=== PATIENT | male | born 1990 | race Caucasian/White ===

== ENCOUNTER 2022-01-10 13:31 | Emergency (ER) | payer BC, OTHER ==
[2022-01-10 14:06] VITALS: RESP 18; TEMP 99.5
[2022-01-10] MEDS ORDERED: SODIUM CHLORIDE 0.9% 2,000 ML IV STA (14:31)
[2022-01-10] MEDS ORDERED: ONDANSETRON 4 MG/2 ML VIAL IVP STA (14:31)
[2022-01-10] MEDS ORDERED: METOCLOPRAMIDE 5 MG/ML 2 ML VIAL IVP STA (14:49)
[2022-01-10] MEDS ORDERED: KETOROLAC 15 MG/ML 1 ML VIAL IVP STA (14:49)
[2022-01-10] MEDS ORDERED: FAMOTIDINE 20 MG/2 ML VIAL IV STA (14:49)
[2022-01-10] MEDS ORDERED: diphenhydrAMINE 50 MG/ML 1 ML VIAL IVP STA (14:49)
--- NOTE | 2022-01-10 14:54 | ED ---
Abdominal Pain HPI - General Chief Complaint: Abdominal Pain Stated Complaint: abd pain Time Seen by Provider: 01/10/22 14:30 Source: patient, family, RN notes reviewed Mode of arrival: ambulatory Limitations: no limitations - History of Present Illness Initial Comments: This a 31-year-old male presents emergency Department with chief complaint of abdominal discomfort, nausea vomiting diarrhea. Patient states symptoms started around 2 AM. Patient had persistent vomiting and diarrhea he states it is bilious at this time. He does admit that he has some periumbilical epigastric discomfort. Patient states that low-grade temp he is currently on antibiotics. He states he was told he had an infection of his foot he states that is greatly improved. He has not taken his antibiotics today because of the nausea vomiting. Patient's had no prior abdominal surgeries. Denies any chest pain shortness breath any cough or cold like symptoms otherwise. - Related Data Previous Rx's Medication Instructions Recorded Clindamycin [Cleocin] 450 mg PO TID #63 cap 01/31/18 Ibuprofen 600 mg PO Q6HR #20 tablet 01/31/18 Ondansetron Odt [Zofran Odt] 4 mg PO Q8HR PRN #10 tab 01/10/22 Allergies Allergy/AdvReac Type Severity Reaction Status Date / Time amoxicillin Allergy Unknown Verified 01/31/18 14:03 Childhood cefaclor [From Ceclor] Allergy Unknown Verified 01/31/18 14:03 Childhood Penicillins Allergy Unknown Verified 01/31/18 14:03 Childhood sulfamethoxazole Allergy Unknown Verified 01/31/18 14:03 [From Bactrim] Childhood trimethoprim [From Bactrim] Allergy Unknown Verified 01/31/18 14:03 Childhood Review of Systems ROS Statement: Those systems with pertinent positive or pertinent negative responses have been documented in the HPI. ROS Other: All systems not noted in ROS Statement are negative. Past Medical History Past Medical History: Asthma History of Any Multi-Drug Resistant Organisms: None Reported Past Surgical History: No Surgical Hx Reported Past Psychological History: Anxiety Smoking Status: Current every day smoker Past Alcohol Use History: None Reported Past Drug Use History: None Reported General Exam Limitations: no limitations General appearance: alert, in no apparent distress Head exam: Present: atraumatic, normocephalic, normal inspection Eye exam: Present: normal appearance, PERRL, EOMI. Absent: scleral icterus, co njunctival injection, periorbital swelling ENT exam: Present: normal exam, mucous membranes moist Neck exam: Present: normal inspection, full ROM. Absent: tenderness, meningismus, lymphadenopathy Respiratory exam: Present: normal lung sounds bilaterally. Absent: respiratory distress, wheezes, rales, rhonchi, stridor Cardiovascular Exam: Present: normal rhythm, tachycardia, normal heart sounds. Absent: systolic murmur, diastolic murmur, rubs, gallop, clicks GI/Abdominal exam: Present: soft, tenderness (Epigastric discomfort), normal bowel sounds. Absent: distended, guarding, rebound, rigid Back exam: Absent: CVA tenderness (R), CVA tenderness (L) Course Vital Signs 01/10/22 14:04 Temperature 99.5 F Pulse Rate 110 H Respiratory 18 Rate Blood Pressure 134/88 O2 Sat by Pulse 96 Oximetry Medical Decision Making - Medical Decision Making 31-year-old presented for nausea vomiting diarrhea abdominal discomfort. Patient's lab reveal mild leukocytosis. It was hydrated, given antiemetics. He was reevaluated that she feels greatly improved I did reexamine his abdomen which is soft he has no tenderness after fluids and antiemetics. Patient felt comfortable with discharge is given strict return parameters for possible an early appendicitis. - Lab Data Result diagrams: 01/10/22 14:51 01/10/22 14:51 Lab Results 01/10/22 01/10/22 Range/Units 14:51 14:51 WBC 15.6 H (3.8-10.6) k/uL RBC 5.08 (4.30-5.90) m/uL Hgb 16.1 (13.0-17.5) gm/dL Hct 47.1 (39.0-53.0) % MCV 92.7 (80.0-100.0) fL MCH 31.7 (25.0-35.0) pg MCHC 34.2 (31.0-37.0) g/dL RDW 13.4 (11.5-15.5) % Plt Count 310 (150-450) k/uL MPV 8.5 Neutrophils % 93 % Lymphocytes % 4 % Monocytes % 3 % Eosinophils % 1 % Basophils % 0 % Neutrophils # 14.4 H (1.3-7.7) k/uL Lymphocytes # 0.6 L (1.0-4.8) k/uL Monocytes # 0.4 (0-1.0) k/uL Eosinophils # 0.1 (0-0.7) k/uL Basophils # 0.0 (0-0.2) k/uL Sodium 135 L (137-145) mmol/L Potassium 4.3 (3.5-5.1) mmol/L Chloride 103 (98-107) mmol/L Carbon Dioxide 22 (22-30) mmol/L Anion Gap 10 mmol/L BUN 15 (9-20) mg/dL Creatinine 0.72 (0.66-1.25) mg/dL Est GFR (CKD-EPI)AfAm >90 (>60 ml/min/1.73 sqM) Est GFR (CKD-EPI)NonAf >90 (>60 ml/min/1.73 sqM) Glucose 126 H (74-99) mg/dL Calcium 9.3 (8.4-10.2) mg/dL Total Bilirubin 1.8 H (0.2-1.3) mg/dL AST 23 (17-59) U/L ALT 16 (4-49) U/L Alkaline Phosphatase 34 L (38-126) U/L Total Protein 6.9 (6.3-8.2) g/dL Albumin 4.3 (3.5-5.0) g/dL Amylase 58 (30-110) U/L Lipase 23 (23-300) U/L Disposition Clinical Impression: Gastroenteritis Disposition: HOME SELF-CARE Condition: Stable Instructions (If sedation given, give patient instructions): Gastroenteritis (ED) Additional Instructions: Please return to the Emergency Department if symptoms worsen or any other concerns. Prescriptions: Ondansetron Odt [Zofran Odt] 4 mg PO Q8HR PRN #10 tab PRN Reason: Nausea Is patient prescribed a controlled substance at d/c from ED?: No Referrals: None,Stated [Primary Care Provider] - 1-2 days
[2022-01-10 15:14] LABS: AST 23 U/L (17-59); African American GFR (CKD) >90 (>60 ml/min/1.73 sqM); Albumin 4.3 g/dL (3.5-5.0); Amylase 58 U/L (30-110); Blood Urea Nitrogen 15 mg/dL (9-20); Calcium 9.3 mg/dL (8.4-10.2); Carbon Dioxide 22 mmol/L (22-30); Glucose 126 mg/dL (74-99); Non-African American GFR(CKD) >90 (>60 ml/min/1.73 sqM); Potassium 4.3 mmol/L (3.5-5.1); Sodium 135 mmol/L (137-145); Total Bilirubin 1.8 mg/dL (0.2-1.3); Total Protein 6.9 g/dL (6.3-8.2)
[2022-01-10 15:16] LABS: ALT 16 U/L (4-49); Alkaline Phosphatase 34 U/L (38-126); Lipase 23 U/L (23-300)
[2022-01-10 15:19] LABS: Basophils % (A) 0 %; Eosinophils # (A) 0.1 k/uL (0-0.7); Eosinophils % (A) 1 %; HCT 47.1 % (39.0-53.0); HGB 16.1 gm/dL (13.0-17.5); Lymphocytes # (A) 0.6 k/uL (1.0-4.8); Lymphocytes % (A) 4 %; MCH 31.7 pg (25.0-35.0); MCHC 34.2 g/dL (31.0-37.0); MCV 92.7 fL (80.0-100.0); Mean Platelet Volume 8.5; Monocytes # (A) 0.4 k/uL (0-1.0); Monocytes % (A) 3 %; Neutrophils # (A) 14.4 k/uL (1.3-7.7); Neutrophils % (A) 93 %; Platelet Count 310 k/uL (150-450); RBC 5.08 m/uL (4.30-5.90); RDW 13.4 % (11.5-15.5); WBC 15.6 k/uL (3.8-10.6)
[2022-01-10 15:52] LABS: Anion Gap 10 mmol/L; Chloride 103 mmol/L (98-107)
[2022-01-10 16:12] VITALS: BP 103/87; PULSE 89
== END 2022-01-10 16:12 | disposition home or self-care (01) ==
LOC: EC 13:31
DX: R10.9 Unspecified abdominal pain (principal); Z88.0 Allergy status to penicillin; Z88.1 Allergy status to other antibiotic agents; Z88.2 Allergy status to sulfonamides; F17.200 Nicotine dependence, unspecified, uncomplicated
CPT/HCPCS: 80053; 82150; 83690; 85025; 99284; 96374; 96375; 96361; J1200; J2765; J2405; J1885; 36415

== ENCOUNTER 2022-02-08 19:44 | Emergency (ER) | payer BC ==
[2022-02-08 20:36] VITALS: TEMP 97.6
--- NOTE | 2022-02-09 | XR ---
EXAMINATION TYPE: XR foot complete LT DATE OF EXAM: 02/08/2022 COMPARISON: NONE HISTORY: Foot infection TECHNIQUE: 3 views FINDINGS: Metatarsals are intact. I see no fracture nor dislocation. There are no erosions. There is some thickening of the shaft of the distal fifth metatarsal consistent with old fracture. No focal constanza ne destruction. IMPRESSION: No acute abnormality of the left foot. No sign of osteomyelitis.
[2022-02-09 00:07] VITALS: BP 128/66; PULSE 63; RESP 17
--- NOTE | 2022-02-09 00:41 | ED ---
Extremity Problem HPI - General Chief complaint: Extremity Problem,Nontraumatic Stated complaint: R foot sore Time Seen by Provider: 02/08/22 22:11 Source: patient Mode of arrival: ambulatory Limitations: no limitations - History of Present Illness Initial comments: This patient is a 31-year-old man who presents for evaluation of left foot redness and swelling. The patient states that symptoms have been going on between 1 and 2 months. He was initially seen at urgent care at the end of December and given course of doxycycline for suspected foot infection. He went back out when that course ended and was given another course of medication. He states that the symptoms do get a little better but then recur. He has not noted any systemic symptoms. No fever or chills. No chest pain, palpitations, dyspnea or other symptoms. The patient cannot recall any trauma to the foot or penetrating injury. MD Complaint: extremity swelling -: month(s) Location: left Severity scale (1-10): 3 Quality: burning Consistency: constant Improves with: nothing Worsens with: weight bearing Associated Symptoms: denies other symptoms - Related Data Previous Rx's Medication Instructions Recorded Doxycycline [Vibramycin] 100 mg PO BID 1 Days #20 capsule 02/09/22 Allergies Allergy/AdvReac Type Severity Reaction Status Date / Time amoxicillin Allergy Unknown Verified 02/08/22 22:40 Childhood cefaclor [From Ceclor] Allergy Unknown Verified 02/08/22 22:40 Childhood Penicillins Allergy Unknown Verified 02/08/22 22:40 Childhood sulfamethoxazole Allergy Unknown Verified 02/08/22 22:40 [From Bactrim] Childhood trimethoprim [From Bactrim] Allergy Unknown Verified 02/08/22 22:40 Childhood Review of Systems ROS Statement: Those systems with pertinent positive or pertinent negative responses have been documented in the HPI. ROS Other: All systems not noted in ROS Statement are negative. Constitutional: Denies: fever, chills, weakness Respiratory: Denies: cough, dyspnea Cardiovascular: Denies: chest pain, palpitations, edema Musculoskeletal: Reports: as per HPI, other (Left foot swelling) Skin: Reports: as per HPI, change in color Neurological: Denies: weakness, numbness, paresthesias Past Medical History Past Medical History: Asthma History of Any Multi-Drug Resistant Organisms: None Reported Past Surgical History: No Surgical Hx Reported Past Psychological History: Anxiety Smoking Status: Current every day smoker Past Alcohol Use History: None Reported Past Drug Use History: None Reported General Exam Limitations: no limitations General appearance: alert, in no apparent distress Left Lower Leg exam: Present: normal inspection, full ROM. Absent: tenderness, swelling Ankle exam: Present: normal inspection, full ROM. Absent: tenderness, swelling Foot/Toe exam: Present: full ROM, tenderness, swelling, erythema. Absent: abrasion, laceration, ecchymosis, deformity, crepitus, dislocation, amputation, puncture wound, foreign body, calcaneal tenderness, tenderness at base of 5th metatarsal, nail avulsion, subungual hematoma Neurovascular tendon exam: Present: no vascular compromise. Absent: pulse deficit, abnormal cap refill, motor deficit, sensory deficit, tendon deficit Course Vital Signs 02/08/22 02/09/22 20:32 00:05 Temperature 97.6 F Pulse Rate 85 63 Respiratory 16 17 Rate Blood Pressure 131/76 128/66 O2 Sat by Pulse 100 97 Oximetry Medical Decision Making - Medical Decision Making Patient is 31-year-old man with erythema, warmth, redness to skin of the forefoot of the left foot. The patient does not manifest decreased range of motion or any other signs concerning for septic arthritis. Disposition Clinical Impression: Cellulitis Disposition: HOME SELF-CARE Condition: Good Instructions (If sedation given, give patient instructions): Cellulitis (ED) Prescriptions: Doxycycline [Vibramycin] 100 mg PO BID 1 Days #20 capsule Is patient prescribed a controlled substance at d/c from ED?: No Referrals: None,Stated [Primary Care Provider] - 1-2 days Jameel Stratton MD [STAFF PHYSICIAN] - 1-2 days
== END 2022-02-09 01:09 | disposition home or self-care (01) ==
LOC: EC 19:44
DX: L03.116 Cellulitis of left lower limb (principal); F17.200 Nicotine dependence, unspecified, uncomplicated; J45.909 Unspecified asthma, uncomplicated; Z88.0 Allergy status to penicillin; Z88.1 Allergy status to other antibiotic agents; Z88.2 Allergy status to sulfonamides
CPT/HCPCS: 36415; 87040; 99283